=== PATIENT | male | born 2005 | race Caucasian/White ===

== ENCOUNTER 2023-03-07 20:21 | Emergency (ER) | payer OTHER ==
[2023-03-07 21:56] LABS: BASO % 0.2 % (0.0-1.0); EOS % 0.3 % (0.0-3.0); HEMATOCRIT 46.5 % (42.0-52.0); HEMOGLOBIN 16.6 g/dl (13.5-17.5); LYMPH # 0.4 10^3/uL (1.5-5.0); LYMPH % 2.3 % (24.0-44.0); MEAN CORPUSCULAR HEMOGLOBIN 29.8 pg (27.0-33.0); MEAN CORPUSCULAR HGB CONC 35.7 g/dl (32.0-36.5); MEAN CORPUSCULAR VOLUME 83.5 fl (80.0-96.0); MONO # 0.9 10^3/uL (0.0-0.8); MONO % 5.7 % (2.0-8.0); NEUTROPHILS # 14.1 10^3/uL (1.5-8.5); PLATELET COUNT, AUTOMATED 243 10^3/uL (150-450)
[2023-03-07 21:57] LABS: RED BLOOD COUNT 5.57 10^6/uL (4.30-6.10); WHITE BLOOD COUNT 15.5 10^3/uL (4.0-10.0)
[2023-03-07 22:14] LABS: LIPASE 27 U/L (12-53)
[2023-03-07 22:17] LABS: BLOOD UREA NITROGEN 18 MG/DL (9-23); CALCIUM LEVEL 9.6 MG/DL (8.5-10.1); CARBON DIOXIDE LEVEL 27 MMOL/L (20-31); CHLORIDE LEVEL 101 MMOL/L (98-107); CREATININE FOR GFR 1.12 MG/DL (0.70-1.30); GLUCOSE, FASTING 113 MG/DL (60-100); POTASSIUM SERUM 4.5 MMOL/L (3.5-5.1); SODIUM LEVEL 138 MMOL/L (136-145)
[2023-03-08] MEDS ORDERED: KETOROLAC 30 MG/ML 1ML VIAL IV ONE (02:40)
[2023-03-08] MEDS ORDERED: ONDANSETRON 4MG 2ML VIAL IV ONE (02:40)
[2023-03-08] MEDS ORDERED: NS 1,000 ML IV ONE (02:40)
[2023-03-08 04:00] VITALS: BP 96/50; TEMP 99; O2SAT 98
[2023-03-08] MEDS ORDERED: ONDA4TAB6 PO (04:38)
== END 2023-03-08 05:00 | disposition home or self-care (01) ==
LOC: M ED 20:21
DX: A09 Infectious gastroenteritis and colitis, unspecified (principal)
CPT/HCPCS: 80048; 83690; 85025; 87486; 87581; 87633; 87798; 96374; 96375; 99284; J1885; J2405